=== PATIENT | female | born 1960 | race Caucasian/White ===

== ENCOUNTER → 2019-01-23 | Day surgery (SDC) | payer BC ==
[~2019-01-23] MED LIST: ESTRADIOL1 MG PO; FENTANYL CITRATE/PF 100MCG/2 ML INJ ONE; METOPROLOL SUCC25 MG PO; MIDAZOLAM HCL 2 MG/2 ML VIAL ONE; PROPOFOL IV EMULSION 10 MG/ML 50 ML VIAL ONE; SERTRALINE HCL50 MG PO
--- OUTSIDE RECORDS SUMMARY | 2019-01-23 06:52 | XMS REPORT | Summary of Care ---
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 Frequency: 1-2 times per week. Assessment and Plan No data available for this section
--- OUTSIDE RECORDS SUMMARY | 2019-01-23 06:52 | XMS REPORT | Summary of Care ---
Author Author [facility] Outpatient Imaging - [place] Organization [facility] Outpatient Imaging - [place] Address Unknown Phone Unavailable Encounter HQ Encntr_alileena(FIN) [id number] Date(s): 11/11/17 - 11/11/17 [facility] Outpatient Imaging - [place] [address] [place] [phone] Discharge Disposition: Home or Self Care Attending Physician: Parmjit Leblanc DO Vital Signs No data available for this section Problem List Condition Effective Dates Status Health Status Informant Anxiety(Confirmed) Resolved 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 Frequency: 1-2 times per week. Assessment and Plan No data available for this section
--- OUTSIDE RECORDS SUMMARY | 2019-01-23 06:52 | XMS REPORT | Summary of Care ---
Author Author [facility] Outpatient Imaging - [place] Organization [facility] Outpatient Imaging - [place] Address Unknown Phone Unavailable Encounter HQ Encntr_alileena(FIN) [id number] Date(s): 03/25/17 - 03/25/17 [facility] Outpatient Imaging - [place] [address] [place] [address] [phone] Discharge Disposition: Home or Self Care Attending Physician: Donovan Leblanc DO Vital Signs No data [...]
--- OUTSIDE RECORDS SUMMARY | 2019-01-23 06:52 | XMS REPORT | Continuity of Care Document ---
Author Author [facility] Interface Address Unknown Phone Unavailable Problems Problem Status Onset Date Classification Date Reported Comments Source M81 - OSTEOPOROSIS WITHOUT CURRENT P Active 03/18/2017 [facility] [place] Discharge Diagnosis: Contusion of hand 09/21/2014 09/23/2014 [facility] Discharge Diagnosis: Acute alcoholic intoxication 09/21/2014 09/23/2014 [facility] ETOH Active 09/21/2014 [facility] V76.12 - SCREEN MAMMOGRA Active 09/05/2012 [facility] [place] Anxiety Resolved Problem 11/14/2017 [facility] [place] Mitral and aortic heart valve diseases, unspecified Resolved Problem 11/14/2017 [facility] [place] Medications Medication Details Route Status Patient Instructions Ordering Provider Order Date Source Ibuprofen 600 MG Oral Tablet [Motrin] 600 mg=1 tab, PO, Q6H, Pain, take with food, # 30 tab, 0 Refill(s)Special Instructions: take with food Active 09/21/2014 [facility] Motrin 600 mg, 1 tab, Route: PO, Drug form: TAB, ONCE, Dosing Weight 52.273, kg, Priority: STAT, Start date: 09/21/14 1:31:00, Stop date: 09/21/14 1:31:00Notes: (Same as: Motrin) "Do Not Crush" Take with food. Inactive 09/21/2014 [facility] Sodium Chloride 0.154 MEQ/ML Injectable Solution 1,000 mL, 1,000 ml/hr, Infuse Over: 1 hr, Route: IV, 1,000, Drug form: INJ, ONCE, Priority: STAT, Dosing Weight 52.273 kg, Start date: 09/21/14 1:31:00, Duration: 1 doses or times, Stop date: 09/21/14 1:31:00 Inactive 09/21/2014 [facility] Allergies, Adverse Reactions, Alerts Substance Category Reaction Severity Reaction type Status Date Reported Comments Source Immunizations Immunization Date Given Site Status Last Updated Comments Source Results Order Name Results Value Reference Range Date Interpretation Comments Source Breast Mammo Scrn ROSALIO incl CAD MA Breast Mammo Scrn ROSALIO incl CAD MA BILATERAL DIGITAL SCREENING MAMMOGRAM WITH CAD: 11/11/2017 CLINICAL: Routine/Screening. Current study was evaluated with a Computer Aided Detection (CAD) system. COMPARISON:Comparison is made to exams dated: 02/14/2015 mammogram, 09/07/2012 mammogram - [facility], 12/14/2010 mammogram, 09/09/2009 mammogram, and 02/16/2008 mammogram - [facility]. TECHNIQUE: Mammographic views were obtained using digital acquisition. Current study was also evaluated with a Computer Aided Detection (CAD) system. FINDINGS: The tissue of both breasts is heterogeneously dense, which could obscure detection of small masses. Bilateral breast implants are stable. No significant masses, calcifications, or other findings are seen in either breast. There has been no significant interval change. IMPRESSION: BENIGN RECOMMENDATION:There is no mammographic evidence of malignancy. A 1 year screening mammogram is recommended.(11/12/2018) This exam was interpreted at [id number] at [facility]. Professional services are provided by the [facility] Diagnostic [facility]. Nova Lawson M.D. ak/erasmo:11/14/2017 14:30:42 Control Room Supervisor(s): Magui Carrillo RT(R)(M), [facility] letter sent: BI-RADS 1/2 Mammogram BI-RADS: 2 Benign 11/11/2017 - - Read by: Nova Lawson MD Dictated Date/time: 11/14/17 14:30 Electronically Signed by: Nova Lawson MD 11/14/17 14:30 FINAL REPORT [facility] [place] Ext Lower non vascular US Ext Lower non vascular US EXAM: Left knee superficial ultrasound. CLINICAL HX: Left knee pain, swelling, and palpable abnormality. . . TECHNIQUE: Grayscale and Doppler sonogram targeted to the left knee (area of concern). COMPARISON: None. FINDINGS: At the area of concern in the soft tissues of the left knee: -- Mass: None. -- Drainable fluid collection: None. -- Other: None. IMPRESSION: 1. As above. 03/25/2017 - - Read by: Reggie Flores MD Dictated Date/time: 03/25/17 17:02 Electronically Signed by: Reggie Flores MD 03/25/17 17:03 FINAL REPORT [facility] D[facility]RI[facility] [place] Bone Density DXA Dual Energy MA Bone Density DXA Dual Energy MA - Bone Density DXA Dual Energy MA BONE DENSITY EVALUATION: 03/25/2017 CLINICAL DATA: Post menopausal. RISK FACTORS: race. FINDINGS: Bone density evaluation was performed 03/25/2017 on the AP L1-L4 region of spine using a Hologic unit. The BMD average for the exam is 0.815 g/cm2. The T-score is -2.10 and the Z-score is -0.90. This matches the World Health Organization's criteria for osteopenia and places the patient at a medium risk for fracture. An additional bone density evaluation was performed 03/25/2017 on the right femur neck using a Hologic unit. The BMD average for the exam is 0.630 g/cm2. The T-score is -2.00 and the Z-score is -0.80. This matches the World Health Organization's criteria for osteopenia and places the patient at a medium risk for fracture. An additional bone density evaluation was performed 03/25/2017 on the right hip using a Hologic unit. The BMD average for the exam is 0.704 g/cm2. The T-score is -1.90 and the Z-score is -1.10. This matches the World Health Organization's criteria for osteopenia and places the patient at a medium risk for fracture. An additional bone density evaluation was performed 03/25/2017 on the left femur neck using a Hologic unit. The BMD average for the exam is 0.668 g/cm2. The T- score is -1.60 and the Z-score is -0.50. This matches the World Health Organization's criteria for osteopenia and places the patient at a medium risk for fracture. An additional bone density evaluation was performed 03/25/2017 on the left hip using a Hologic unit. The BMD average for the exam is 0.708 g/cm2. The T-score is -1.90 and the Z-score is -1.10. This matches the World Health Organization's criteria for osteopenia and places the patient at a medium risk for fracture. IMPRESSION: OSTEOPENIA Patient is at medium risk for fracture. Professional services are provided by the [facility] Diagnostic Imaging. This exam was dictated and interpreted by [id number] for SHAINA Aceves M.D. cm/penrad:03/28/2017 09:14:13 Control Room Supervisor: Yady BENJAMIN)(Rocky), [facility] 03/25/2017 - - Read by: Jay Jay Ng MD Dictated Date/time: 03/28/17 09:14 Electronically Signed by: Jay Jay Ng MD 03/28/17 09:14 FINAL REPORT ROGERSterling [place] Knee 1-2 Views unilateral DX Knee 1-2 Views unilateral DX Exam: Left knee x-ray, 2 views Reason for Exam: Left knee pain Comparison Exam: none Discussion: No fractures or dislocations are seen of the left knee. The joint spaces are preserved. Benign-appearing sclerotic lesion seen within the proximal medial femoral condyle. No radiopaque foreign bodies. Impression: 1. No acute bony abnormalities seen within the left knee. 03/25/2017 - - Read by: Sher Mckeon MD Dictated Date/time: 03/25/17 15:42 Electronically Signed by: Sher Mckeon MD 03/25/17 15:44 FINAL REPORT [facility] [place] Knee series 3 views DX Knee series 3 views DX Name: KEN TRINH : 1960 SEX: F Ordering Physician: Meena Leblanc Knee series : Feb 28, 2015 07:41:00 AM. CLINICAL INDICATION: left knee pain Comparison Examination: None FINDINGS: AP, lateral, and oblique views of the knee are obtained. There is normal alignment without fractures or dislocations. The medial and lateral tibiofemoral compartments and patellofemoral compartment are unremarkable. There is no knee region soft tissue swelling. Hoffa's fat pad region is unremarkable. There are no joint bodies. There is no joint effusion. There are no radiopaque foreign bodies. If there is further concern, recommend follow-up radiographs or MRI for complete assessment. IMPRESSION: No acute abnormality within the left knee. SL: 57 02/28/2015 - - Read by: Alissa Davis MD Dictated Date/time: 02/28/15 08:13 Electronically Signed by: Alissa Davis MD 02/28/15 08:13 FINAL REPORT D[facility] Digital Mammo Screening Rosalio MA Digital Mammo Screening Rosalio MA - DIGITAL MAMMO SCREENING ROSALIO MA BILATERAL DIGITAL SCREENING MAMMOGRAM WITH CAD: 02/14/2015 CLINICAL: Routine. Current study was evaluated with a Computer Aided Detection (CAD) system. Comparison is made to exams dated: 12/14/2010 mammogram - [facility] and 09/07/2012 mammogram - [facility]. The tissue of both breasts is heterogeneously dense, which could obscure detection of small masses. There are bilateral prepectoral silicone breast implants. No significant masses, calcifications, or other findings are seen in either breast. IMPRESSION: BENIGN There is no mammographic evidence of malignancy. A screening mammogram in one year is recommended. Dr. Cherelle Bradford D.O. ht/penrad:02/14/2015 14:27:10 Control Room Supervisor: Flora VIVEROS(R)(M), [facility] This exam was dictated and interpreted by [id number] for [place]. letter sent: Normal exam Mammogram BI-RADS: 2 Benign 02/14/2015 - - Read by: Cherelle Bradford DO Dictated Date/time: 02/14/15 14:27 Electronically Signed by: Cherelle Bradford DO 02/14/15 14:27 FINAL REPORT [place] Bone Density-Dual Energy Absorptionmetry Bone Density-Dual Energy Absorptionmetry - Bone Density-Dual Energy Absorptionmetry BONE DENSITY EVALUATION: 02/14/2015 CLINICAL DATA: Post menopausal. FINDINGS: Bone density evaluation was performed 02/14/2015 on the AP L1-L4 region of spine using Lunar Dual Energy X-Ray Absorptiometry. The BMD average for the exam is 0.946 g/cm2. The T-score is -2.00 and the Z-score is -0.70. These values indicate 92.0% for age-matched controls. This matches the World Health Organization's criteria for osteopenia and places the patient at a medium risk for fracture. An additional bone density evaluation was performed 02/14/2015 on the right femur neck using Lunar Dual Energy X-Ray Absorptiometry. The BMD average for the exam is 0.735 g/cm2. The T-score is -2.20 and the Z-score is -0.90. These values indicate 86.0% for age-matched controls. This matches the World Health Organization's criteria for osteopenia and places the patient at a medium risk for fracture. An additional bone density evaluation was performed 02/14/2015 on the right hip using Lunar Dual Energy X-Ray Absorptiometry. The BMD average for the exam is 0.787 g/cm2. The T-score is -1.80 and the Z-score is -0.80. These values indicate 89.0% for age-matched controls. This matches the World Health Organization's criteria for osteopenia and places the patient at a medium risk for fracture. An additional bone density evaluation was performed 02/14/2015 on the left femur neck using Lunar Dual Energy X-Ray Absorptiometry. The BMD average for the exam is 0.701 g/cm2. The T-score is -2.40 and the Z-score is -1.10. These values indicate 82.0% for age-matched controls. This matches the World Health Organization's criteria for osteopenia and places the patient at a medium risk for fracture. An additional bone density evaluation was performed 02/14/2015 on the left hip using Lunar Dual Energy X-Ray Absorptiometry. The BMD average for the exam is 0.801 g/cm2. The T-score is -1.60 and the Z-score is -0.70. These values indicate 91.0% for age-matched controls. This matches the World Health Organization's criteria for osteopenia and places the patient at a medium risk for fracture. IMPRESSION: OSTEOPENIA Patient is at medium risk for fracture. This exam was dictated and interpreted by [id number] for Lupillo. Dr. Cherelle Bradford D.O. ht/penrad:02/14/2015 14:14:13 Control Room Supervisor: Roxanne Ragland [facility] 02/14/2015 - - Read by: Cherelle Bradford Horng-Chyi Dictated Date/time: 03/20/15 14:14 Electronically Signed by: Cherelle Bradford DO 02/14/15 14:14 FINAL REPORT [facility] [place] CHEM PANEL eGFR 103 mL/min/1.73m2 09/21/2014 1Result Comment: The eGFR is calculated using the CKD-EPI formula. In most young, healthy individuals the eGFR will be >90 mL/min/1.73m2. The eGFR declines with age. An eGFR of 60-89 may be normal in some populations, particularly the elderly, for whom the CKD-EPI formula has not been extensively validated. Use of the eGFR is not recommended in the following populations: Individuals with unstable creatinine concentrations, including patients and those with serious co-morbid conditions. Patients with extremes in muscle mass or diet. The data above are obtained from the National Kidney Disease Education Program (NKDEP) which additionally recommends that when the eGFR is used in patients with extremes of body mass index for purposes of drug dosing, the eGFR should be multiplied by the estimated BMI. [facility] CHEM PANEL Glucose Lvl 105 mg/dL 70 - 99 09/21/2014 2Interpretive Data: Adult reference range values reflect the clinical guidelines of the [place] Diabetes Association. [facility] CHEM PANEL BUN 8 mg/dL 7 - 22 09/21/2014 [facility] CHEM PANEL Creatinine Lvl 0.6 mg/dL 0.5 - 1.4 09/21/2014 [facility] CHEM PANEL Sodium Lvl 139 meq/L 135 - 145 09/21/2014 [facility] CHEM PANEL Potassium Lvl 3.7 meq/L 3.5 - 5.1 09/21/2014 [facility] CHEM PANEL Chloride Lvl 103 meq/L 95 - 109 09/21/2014 [facility] CHEM PANEL Alk Phos 48 unit/L 39 - 136 09/21/2014 [facility] CHEM PANEL Albumin Lvl 3.6 g/dL 3.5 - 5.0 09/21/2014 [facility] CHEM PANEL ALT 24 unit/L 0 - 65 09/21/2014 [facility] CHEM PANEL AST 18 unit/L 0 - 37 09/21/2014 [facility] CHEM PANEL Bili Total 0.1 mg/dL 0.2 - 1.3 09/21/2014 [facility] CHEM PANEL Total Protein 6.8 g/dL 6.4 - 8.4 09/21/2014 [facility] CHEM PANEL CO2 28 meq/L 24 - 32 09/21/2014 [facility] CHEM PANEL Calcium Lvl 8.5 mg/dL 8.5 - 10.5 09/21/2014 [facility] CHEM PANEL Globulin 3.2 g/dL 2.0 - 4.0 09/21/2014 [facility] CHEM PANEL A/G Ratio 1.1 0.7 - 1.6 09/21/2014 [facility] CHEM PANEL B/C Ratio 13 6 - 25 09/21/2014 [facility] CHEM PANEL AGAP 11.7 meq/L 10.0 - 20.0 09/21/2014 [facility] HEMATOLOGY Basophils 0.4 % 0.0 - 1.0 09/21/2014 [facility] HEMATOLOGY Segs 84.0 % 45.0 - 75.0 09/21/2014 [facility] HEMATOLOGY Lymphocytes 12.1 % 20.0 - 40.0 09/21/2014 [facility] HEMATOLOGY Eosinophils 0.3 % 0.0 - 4.0 09/21/2014 [facility] HEMATOLOGY Monocytes 3.2 % 2.0 - 12.0 09/21/2014 [facility] HEMATOLOGY Monocytes # 0.2 K/CMM 0.0 - 0.8 09/21/2014 [facility] HEMATOLOGY Segs-Bands # 6.4 K/CMM 1.5 - 8.1 09/21/2014 [facility] HEMATOLOGY Lymphocytes # 0.9 K/CMM 1.0 - 5.5 09/21/2014 [facility] HEMATOLOGY MPV 8.8 fL 7.4 - 10.4 09/21/2014 [facility] HEMATOLOGY MCV 94.7 fL 80.0 - 98.0 09/21/2014 [facility] HEMATOLOGY RDW 12.2 % 11.5 - 14.5 09/21/2014 [facility] HEMATOLOGY Platelet 221 K/CMM 133 - 450 09/21/2014 [facility] HEMATOLOGY MCH 33.5 pg 27.0 - 31.0 09/21/2014 [facility] HEMATOLOGY MCHC 35.4 g/dL 32.0 - 36.0 09/21/2014 [facility] HEMATOLOGY Hct 33.0 % 36.0 - 48.0 09/21/2014 [facility] HEMATOLOGY Hgb 11.7 g/dL 12.0 - 16.0 09/21/2014 [facility] HEMATOLOGY RBC 3.49 M/CMM 4.20 - 5.40 09/21/2014 [facility] HEMATOLOGY WBC 7.7 K/CMM 3.7 - 10.4 09/21/2014 [facility] TOXICOLOGY Etoh (%) 0.217 % 09/21/2014 3Interpretive Data: Ethanol testing results should be used for medical purposes only. Negative Range: <0.003% Toxic Range: >0.25% [facility] TOXICOLOGY Ethanol Lvl 217 mg/dL 09/21/2014 4Interpretive Data: Negative Range: <3 mg/dL Toxic Range: >250 mg/dL [facility] Hand AP lateral oblique Hand AP lateral oblique Name: DYLON ABEL : 1960 SEX: F Ordering Physician: Stepan Phillips Hand AP lateral oblique : Sep 21, 2014 01:51:00 AM. CLINICAL INDICATION: Pain, Trauma Comparison Examination: None AP, lateral, and oblique views of the left are provided. FINDINGS: There is normal alignment without fractures or dislocations. The digit and thumb interphalangeal joints are unremarkable. The metacarpophalangeal and carpometacarpal joint regions are unremarkable. There are no significant degenerative changes. There is no soft tissue swelling or radiopaque foreign bodies. The visualized wrist is grossly unremarkable. IMPRESSION: No acute fracture or dislocation of the left hand. SL: 23 09/21/2014 - - Read by: Ric Glass MD Dictated Date/time: 09/21/14 02:07 Electronically Signed by: Ric Glass MD 09/21/14 02:07 FINAL REPORT [facility] Vital Signs Vital Sign Value Date Comments Source Temperature Oral (F) 98.3 F 09/21/2014 [facility] Respitory Rate 20 09/21/2014 [facility] BMI Calculated 20.41 09/21/2014 [facility] Height 160.02 cm 09/21/2014 [facility] Diastolic (mm Hg) 64 09/21/2014 [facility] Heart Rate 76 09/21/2014 [facility] Systolic (mm Hg) 136 09/21/2014 [facility] Weight 52.273 09/21/2014 [facility] Encounters Location Location Details Encounter Type Encounter Number Reason For Visit Attending Provider ADM Date DC Date Status Source OD [id number] V76.12 - SCREEN MAMMOGRA MEENA LEBLANC 09/07/2012 Active [facility] [id number] Stepan Phillips 09/21/2014 09/21/2014 [facility] Outpatient Imaging - [place] [facility] [id number] Meena Leblanc 02/14/2015 02/15/2015 [facility] [place] [facility] Outpatient Imaging [place] Out[facility] Diag [facility] [id number] Meena Leblanc 02/28/2015 03/01/2015 [facility] [place] [facility] Outpatient Imaging - [place] Outpt Diag Services [id number] Meena Leblanc 03/25/2017 03/26/2017 [facility] [place] [facility] Outpatient Imaging - [place] Outpt Diag Services [id number] Parmjit Leblanc 11/11/2017 11/12/2017 [facility] [place] [id number] V76.12 - SCREEN MAMMOGRA MEENA LEBLANC [facility]ancel [facility] Procedures Procedure Code Date Perfomer Comments Source Chemotherapy [id number] [facility] [place] Radiation oncology AND/OR radiotherapy [id number] [facility] [place] Chemotherapy [id number] [facility] [place] Radiation oncology AND/OR radiotherapy [id number] [facility] [place] Chemotherapy [id number] [facility] Radiation oncology AND/OR radiotherapy [id number] [facility]
--- OUTSIDE RECORDS SUMMARY | 2019-01-23 06:52 | XMS REPORT | Summary of Care ---
Author Organization Unknown Address Unknown Phone Unavailable Encounter HQ Rigor_cinthya(FIN) [id number] Date(s): 02/28/15 - 02/28/15 [facility] Outpatient Imaging [facility] [address] [address] [place] [address] [phone] Discharge Disposition: Home Physician Attending: Donovan Leblanc [...]
--- OUTSIDE RECORDS SUMMARY | 2019-01-23 06:52 | XMS REPORT | Summary of Care ---
Author Organization Unknown Address Unknown Phone Unavailable Encounter ЕЛЕНА Tillman(JEMMA) [id number] Date(s): 09/21/14 - 09/21/14 [facility] [address] Discharge Diagnosis: Contusion of hand Discharge Diagnosis: Acute alcoholic intoxication Discharge Disposition: Home Physician Attending: Stepan Phillips MD Reason for Visit ETOH Vital Signs Most recent to 1 oldest [Reference Range]: Height 160.02 cm (09/21/14 12:55 AM) Temperature Oral 98.3 DegF [96.4-99.1 DegF] (09/21/14 12:55 AM) Systolic Blood 136 mmHg Pressure [90-140 (09/21/14 12:55 AM) mmHg] Diastolic Blood 64 mmHg Pressure [60-90 (09/21/14 12:55 AM) mmHg] Respiratory Rate 20 BRMIN [14-20 BRMIN] (09/21/14 12:55 AM) Peripheral Pulse 76 bpm Rate [60-100 bpm] (09/21/14 12:55 AM) Weight 52.273 kg (09/21/14 12:55 AM) Body Mass Index 20.41 m2 (09/21/14 12:55 AM) Problem List Condition Effective Dates Status Health Status Informant Anxiety(Confirmed) 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 Start Date: 09/21/14 Stop Date: 09/21/14 Status: Completed Motrin 600 mg oral tablet 600 mg=1 tab, PO, Q6H, Pain, take with food, # 30 tab, 0 Refill(s) Special Instructions: take with food Start Date: 09/21/14 Status: Ordered Sodium Chloride 0.9% (Bolus) IV 1,000 mL, 1,000 ml/hr, Infuse Over: 1 hr, Route: IV, 1,000, Drug form: INJ, ONCE , Priority: STAT, Dosing Weight 52.273 kg, Start date: 09/21/14 1:31:00, Duratio n: 1 doses or times, Stop date: 09/21/14 1:31:00 Start Date: 09/21/14 Stop Date: 09/21/14 Status: Completed Results ELECTROLYTES Most recent to 1 oldest [Reference Range]: Sodium Lvl [135-145 139 mEq/L mEq/L] (09/21/14 2:17 AM) Potassium Lvl 3.7 mEq/L [3.5-5.1 mEq/L] (09/21/14 2:17 AM) Chloride Lvl [95-109 103 mEq/L mEq/L] (09/21/14 2:17 AM) CO2 [24-32 mEq/L] 28 mEq/L (09/21/14 2:17 AM) AGAP [10.0-20.0 11.7 mEq/L mEq/L] (09/21/14 2:17 AM) CHEM PANEL Most recent to 1 oldest [Reference Range]: Creatinine Lvl 0.6 mg/dL [0.5-1.4 mg/dL] (09/21/14 2:17 AM) eGFR 103 mL/min/1.73m2 1 *NA* (09/21/14 2:17 AM) BUN [7-22 mg/dL] 8 mg/dL (09/21/14 2:17 AM) B/C Ratio [6-25] 13 (09/21/14 2:17 AM) Glucose Lvl [70-99 105 mg/dL 2 mg/dL] *HI* (09/21/14 2:17 AM) Total Protein 6.8 g/dL [6.4-8.4 g/dL] (09/21/14 2:17 AM) Albumin Lvl [3.5-5.0 3.6 g/dL g/dL] (09/21/14 2:17 AM) Globulin [2.0-4.0 3.2 g/dL g/dL] (09/21/14 2:17 AM) A/G Ratio [0.7-1.6] 1.1 (09/21/14 2:17 AM) Calcium Lvl 8.5 mg/dL [8.5-10.5 mg/dL] (09/21/14 2:17 AM) ALT [0-65 unit/L] 24 unit/L (09/21/14 2:17 AM) AST [0-37 unit/L] 18 unit/L (09/21/14 2:17 AM) Alk Phos [39-136 48 unit/L unit/L] (09/21/14 2:17 AM) Bili Total [0.2-1.3 0.1 mg/dL mg/dL] *LOW* (09/21/14 2:17 AM) 1Result Comment: The eGFR is calculated using [...] from the National Kid[employer] Education Program ( NKDEP) which additionally recommends that when the eGFR is used in patients with extremes of body mass index for purposes of drug dosing, the eGFR should be mul tiplied by the estimated BMI. 2Interpretive Data: Adult reference range values reflect the clinical guidelines of the [place] [employer]. TOXICOLOGY Most recent to 1 oldest [Reference Range]: Etoh (%) .217 % 3 *NA* (09/21/14 2:17 AM) Ethanol Lvl 217 mg/dL 4 *NA* (09/21/14 2:17 AM) 3Interpretive Data: Ethanol testing results should be used for medical purposes only. Negative Range: <0.003% Toxic Range: >0.25% 4Interpretive Data: Negative Range: <3 mg/dL Toxic Range: >250 mg/dL HEMATOLOGY Most recent to 1 oldest [Reference Range]: WBC [3.7-10.4 K/CMM] 7.7 K/CMM (09/21/14 2:17 AM) RBC [4.20-5.40 3.49 M/CMM M/CMM] *LOW* (09/21/14:17 AM) Hgb [12.0-16.0 g/dL] 11.7 g/dL *LOW* (09/21/14 2:17 AM) Hct [36.0-48.0 %] 33.0 % *LOW* (09/21/14:17 AM) MCV [80.0-98.0 fL] 94.7 fL (09/21/14:17 AM) MCH [27.0-31.0 pg] 33.5 pg *HI* (09/21/14:17 AM) MCHC [32.0-36.0 35.4 g/dL g/dL] (09/21/14 2:17 AM) RDW [11.5-14.5 %] 12.2 % (09/21/14 2:17 AM) Platelet [133-450 221 K/CMM K/CMM] (09/21/14 2:17 AM) MPV [7.4-10.4 fL] 8.8 fL (09/21/14 2:17 AM) Segs [45.0-75.0 %] 84.0 % *HI* (09/21/14:17 AM) Lymphocytes 12.1 % [20.0-40.0 %] *LOW* (09/21/14:17 AM) Monocytes [2.0-12.0 3.2 % %] (09/21/14 2:17 AM) Eosinophils [0.0-4.0 0.3 % %] (09/21/14 2:17 AM) Basophils [0.0-1.0 0.4 % %] (09/21/14 2:17 AM) Segs-Bands # 6.4 K/CMM [1.5-8.1 K/CMM] (09/21/14 2:17 AM) Lymphocytes # 0.9 K/CMM [1.0-5.5 K/CMM] *LOW* (09/21/14 2:17 AM) Monocytes # [0.0-0.8 0.2 K/CMM K/CMM] (09/21/14 2:17 AM) Medications Administered During Your Visit No data available for this section Immunizations No data available for this section Procedures Procedure Type Body Site Date of Procedure Related Diagnosis Chemotherapy Radiation oncology AND/OR radiotherapy Social History Social History Type Response Alcohol Use: Current, Type: Beer, Type: Wine, Type: Liquor, Frequency: 1-2 times per week
[2019-01-23 11:15] VITALS: BP 126/66
== END | disposition home or self-care (01) ==
LOC: OR 06:50
PROVIDERS: ATTEND Internal Medicine Gastroenterology
DX: R19.7 Diarrhea, unspecified (principal); K63.5 Polyp of colon; D12.2 Benign neoplasm of ascending colon; R00.1 Bradycardia, unspecified; Z85.41 Personal history of malignant neoplasm of cervix uteri; Z92.21 Personal history of antineoplastic chemotherapy; Z92.3 Personal history of irradiation; Z79.1 Long term (current) use of non-steroidal anti-inflammatories (NSAID); F32.9 Major depressive disorder, single episode, unspecified; I34.1 Nonrheumatic mitral (valve) prolapse
CPT/HCPCS: 45384; 93005; J2250; J2704; 45380; 45385